=== PATIENT | male | born 1980 | race Caucasian/White ===

== ENCOUNTER → 2020-05-22 | Outpatient (CLI) | payer OTHER ==
[~2020-05-22] MED LIST: ACETAMINOPHEN-H1 TA2 PO; CIPRO500 MG PO; FLAGYL500 MG PO; Motrin,Rufen800 MG PO
== END | disposition home or self-care (01) ==
LOC: COVID19 10:48
PROVIDERS: ATTEND Family Medicine
DX: Z20.828 Contact with and (suspected) exposure to other viral communicable diseases (principal)